=== PATIENT | female | born 1960 | race Caucasian/White ===

== ENCOUNTER 2022-10-04 13:20 | Outpatient (CLI) | payer OTHER, MEDICAID | END 2022-10-04 20:21 | disposition home or self-care (01) | LOC: SRD 13:20 | DX: J06.9 Acute upper respiratory infection, unspecified (principal); I51.7 Cardiomegaly; M47.814 Spondylosis without myelopathy or radiculopathy, thoracic region | CPT/HCPCS: 71046-TC ==

== ENCOUNTER 2022-10-22 16:17 | Outpatient (CLI) | payer OTHER, MEDICAID | END 2022-10-22 20:58 | disposition home or self-care (01) | LOC: SRD 16:17 | PROVIDERS: ATTEND Physician Assistant | DX: M19.011 Primary osteoarthritis, right shoulder (principal); M19.012 Primary osteoarthritis, left shoulder | CPT/HCPCS: 73030 ==

== ENCOUNTER 2023-03-21 11:06 | Outpatient (CLI) | payer OTHER, MEDICAID ==
[2023-03-21 11:27] LABS: BASOPHILS % (AUTO) 0.8 % (0.0-2.0); EOSINOPHILS # (AUTO) 0.1 K/uL (0.0-0.4); EOSINOPHILS % (AUTO) 2.4 % (0.0-4.0); HEMATOCRIT 42.9 % (36-48); HEMOGLOBIN 14.3 g/dL (12.0-16.0); LYMPHOCYTES # (AUTO) 1.8 K/uL (1.0-5.5); LYMPHOCYTES % (AUTO) 38.6 % (20.5-51.5); MEAN CORPUSCULAR HEMOGLOBIN 35 pg (27-31); MEAN CORPUSCULAR HGB CONC 33 % (32-36); MEAN CORPUSCULAR VOLUME 104 fL (79.0-98.0); MONOCYTES # (AUTO) 0.4 K/uL (0.0-1.0); MONOCYTES % (AUTO) 8.5 % (1.7-9.3); NEUTROPHILS # (AUTO) 2.3 K/uL (1.8-7.7); NEUTROPHILS % (AUTO) 49.7 % (40.0-70.0); PLATELET COUNT (AUTO) 261 K/uL (130-430); RED BLOOD CELL COUNT(AUTO) 4.14 MIL/uL (4.2-6.2); RED CELL DISTRIBUTION WIDTH 13.7 % (9.0-15.0); WHITE BLOOD COUNT (AUTO) 4.7 K/uL (4.8-10.8)
[2023-03-21 12:24] LABS: ALBUMIN 3.8 g/dL (3.4-4.8); CALCIUM 8.8 mg/dL (8.4-11.0); CREATININE 1.01 mg/dL (0.55-1.30); POTASSIUM 3.7 mmol/L (3.5-5.1); THYROID STIMULATING HORMONE 1.18 uIu/mL (0.34-4.82); TOTAL BILIRUBIN 0.8 mg/dL (0.0-1.0); TOTAL PROTEIN, SERUM 7.2 g/dL (6.4-8.3)
[2023-03-21 13:02] LABS: HEMOGLOBIN A1C 4.91 % (<5.7)
[2023-03-22 06:07] LABS: ESTRADIOL 17.3 pg/mL (.); PROGESTERONE 0.3 ng/mL (.); T4 (THYROXINE) 8.3 ug/dL (4.5-12.0); TRIIODOTHYRONINE (T3) 101 ng/dL (71-180); TRIIODOTHYRONINE, FREE 2.6 pg/mL (2.0-4.4)
[2023-03-22 09:06] LABS: C-PEPTIDE, SERUM 4.1 ng/mL (1.1-4.4); CORTISOL (SERUM) 11.6 ug/dL (6.2-19.4); FOLATE (FOLIC ACID) 17.9 ng/mL (>3.0); LUETENIZING HORMONE 65.4 mIU/mL (.)
[2023-03-23 06:07] LABS: HOMOCYSTEINE, PLASMA 12.8 umol/L (0.0-17.2)
[2023-03-24 16:06] LABS: FACTOR V LEIDEN See below: (.)
[2023-03-29 11:33] LABS: ANTI-THYROGLOBULIN AB <10
[2023-03-29 12:39] LABS: MICROALBUMIN URINE RANDOM 12.7 ug/ml (NOT ESTABLISHED)
== END 2023-03-21 21:25 | disposition home or self-care (01) ==
LOC: SLB 11:06
PROVIDERS: ATTEND Physician Assistant
DX: I10 Essential (primary) hypertension (principal); R53.83 Other fatigue; E78.2 Mixed hyperlipidemia; M85.80 Other specified disorders of bone density and structure, unspecified site
CPT/HCPCS: 36415; 80053; 80061; 81291; 81403; 81407; 81479; 82043; 82306; 82533; 82570; 82607; 82627; 82670; 82746; 83001; 83002; 83037; 83090; 83735; 83876; 84144; 84270; 84436; 84439; 84443; 84480; 84481; 84630; 84681; 85025; 86800